=== PATIENT | female | born 1945 | race Caucasian/White ===

== ENCOUNTER → 2021-12-05 | Outpatient (CLI) | payer MEDICARE, OTHER | LOC: CT 11-28 08:30 | DX: I71.4 Abdominal aortic aneurysm, without rupture (principal); J44.9 Chronic obstructive pulmonary disease, unspecified; M54.9 Dorsalgia, unspecified; G89.29 Other chronic pain; N28.1 Cyst of kidney, acquired; E27.8 Other specified disorders of adrenal gland | CPT/HCPCS: 36415; 82565; Q9967 ==

== ENCOUNTER → 2022-01-30 | Outpatient (CLI) | payer MEDICARE, OTHER | LOC: CT 10:30 | DX: I71.4 Abdominal aortic aneurysm, without rupture (principal); J44.9 Chronic obstructive pulmonary disease, unspecified; N28.0 Ischemia and infarction of kidney | CPT/HCPCS: 36415; 82565; 84520; Q9967 ==

== ENCOUNTER → 2022-05-23 | Outpatient (CLI) | payer MEDICARE, OTHER ==
[~2022-05-23] MED LIST: ADULT LOW DOSE81 MG PO; ALLOPURINOL100 MG PO; AMBIEN10 MG PO; AMLODIPINE BES2.5 MG PO; ATORVASTATIN CA10 MG PO; B-121000 MCG PO; CLARITIN10 M2 PO; DITROPAN 5 MG TA5 MG PO; FLONASE ALLER15.8 ML; GABAPENTIN800 MG PO; IBUPROFEN600 MG PO; LEVOTHYROXINE75 MC1 PO; LEXAPRO10 MG PO; LIPITOR TAB 1010 MG PO; MECLIZINE HCL25 MG PO; METOPROLOL TART25 MG PO; OMEPRAZOLE40 MG PO; POTASSIUM CHLO20 ME1 PO; PROAIR HFA8.5 GM INH; SINGULAIR10 MG PO; VITAMIN D21250 MCG PO; WAL-ZYR10 M1 PO; XANAX0.5 MG PO; ZOFRAN ODT 4 MG4 MG SL
[2022-05-23 13:51] LABS: RED BLOOD COUNT 4.4 M/UL (4.00-5.10); WHITE BLOOD COUNT 7.5 K/UL (4.5-11.0)
[2022-05-23 14:06] LABS: BUN/CREATININE RATIO 24 (0-10)
== END ==
LOC: OPSV2 05-22 10:00
PROVIDERS: Anesthesiology
DX: Z01.818 Encounter for other preprocedural examination (principal); R22.1 Localized swelling, mass and lump, neck
CPT/HCPCS: 80048; 85025; 93005